=== PATIENT | female | born 1940 | race Caucasian/White ===

== ENCOUNTER 2016-07-14 08:37 | Inpatient (IN) | payer MEDICARE, OTHER ==
[~2016-07-14 08:37] MED LIST: CARBIDOPA-LEVO1 EAC9 PO; FIORICET 50-301 EAC1 PO; IBUPROFEN200 M2 PO; IMITREX25 M1 PO; LOTEMAX5 M1 EACH EYE; MOBIC7.5 M2 PO; OMEPRAZOLE20 M3 PO; RYTARY ER 23.71 EACH PO; RYTARY ER 36.21 EACH PO; SINEMET CR 50-1 EACH PO; SYNTHROID50 MC1 PO; TOLTERODINE TART2 M3 PO; VITAMIN D32000 UNI2 PO; YUVAFEM10 MCG VG; [UNRECOGNIZED DRUG - CODE] PO
[2016-07-15 06:15] LABS: BASO % 0.1 % (0-2); EOS % 0.1 % (0-7); HCT-HEMATOCRIT 34.4 % (34.0-49.0); HGB-HEMOGLOBIN 11.3 gm/dl (12.0-15.5); IMMATURE GRANULOCYTES ABSOLUTE 0.03 tho/cmm (0-0.03); IMMATURE GRANULOCYTES PERCENT 0.3 % (0-0.3); LYMPH % 7.3 % (20-45); LYMPH ABSOLUTE COUNT 0.7 tho/cmm (0.8-4.5); MCHC MEAN CORPUSCULAR HGB CONC 32.8 % (32.0-36.0); MCV (MEAN CELL VOLUME) 91.2 fl (82.0-96.0); MONO % 11.3 % (0-12); NEUTROPHIL ABSOLUTE COUNT 7.3 tho/cmm (1.6-8.0); NEUTROPHIL-AUTOMATED 7.3 tho/cmm (1.6-8.0); NEUTROPHILS % 80.9 % (40-80); PLATELET COUNT 232 tho/cmm (150-450); RED BLOOD COUNT 3.77 mil/cmm (4.00-5.20)
[2016-07-16] MEDS ORDERED: ULTRAM50 M1 PO (12:15)
[2016-07-16] MEDS ORDERED: ROXICODONE5 M2 PO (12:15)
[2016-07-16] MEDS ORDERED: TYLENOL325 M2 PO (12:16)
[2016-07-16] MEDS ORDERED: DULCOLAX10 MG PR (12:17)
[2016-07-16] MEDS ORDERED: MILK OF MAGNESIA PO (12:17)
[2016-07-16] MEDS ORDERED: ASPIRIN81 M1 PO (12:24)
[2016-08-16] MEDS ORDERED: MAXZIDE 37.5 M1 EAC1 PO (15:09)
== END 2016-07-16 13:04 | DRG 470 ==
LOC: SHSC 08:37 → ORE 11:35 → PACU 13:15 → 5EA 14:30
PROVIDERS: ADMIT Orthopaedic Surgery Foot and Ankle Surgery
PROC: 0SRC0J9 Replacement of Right Knee Joint with Synthetic Substitute, Cemented, Open Approach (ICD-10-PCS; principal; 2016-07-14)
DX: M17.11 Unilateral primary osteoarthritis, right knee (principal); G20 Parkinson's disease; D62 Acute posthemorrhagic anemia; G11.9 Hereditary ataxia, unspecified; E03.9 Hypothyroidism, unspecified; K21.9 Gastro-esophageal reflux disease without esophagitis; E78.5 Hyperlipidemia, unspecified; G47.00 Insomnia, unspecified; G43.909 Migraine, unspecified, not intractable, without status migrainosus
CPT/HCPCS: C1713; J0171; J0690; J2795; J3370